=== PATIENT | male | born 1945 | race Caucasian/White ===

== ENCOUNTER 2024-10-10 10:23 | Emergency (ER) | payer MEDICARE, OTHER ==
[~2024-10-10] VITALS: Ht 188 cm; Wt 83.9 kg
[~2024-10-10 10:23] MED LIST: ATOR40TA PO; LOSARTAN POTAS100 M1 PO; METF500 PO; Prozac40 MG PO; TAMS.4ER PO
[2024-10-10 11:36] LABS: Source, Urine Clean Catch
[2024-10-10 11:41] LABS: BASOPHILS ABSOLUTE AUTO 0.09 K/mm3 (0.00-0.23); BASOPHILS PERCENT AUTO 1 % (0-2); EOSINOPHILS ABSOLUTE AUTO 0.19 K/mm3 (0.00-0.68); EOSINOPHILS PERCENT AUTO 3 % (0-6); Hematocrit 47.3 % (37.0-53.0); Hemoglobin 16.2 g/dL (13.5-17.5); IMMATURE GRAN ABSOLUTE AUTO 0.06 K/mm3 (0.00-0.10); IMMATURE GRAN PERCENT AUTO 1 % (0-1); LYMPHOCYTES ABSOLUTE AUTO 1.25 K/mm3 (0.84-5.20); LYMPHOCYTES PERCENT AUTO 20 % (21-46); MONOCYTES ABSOLUTE AUTO 0.68 K/mm3 (0.16-1.47); MONOCYTES PERCENT AUTO 11 % (4-13); Mean Corpuscular HGB 27.1 pg (26.0-34.0); Mean Corpuscular HGB Conc 34.2 g/dL (31.5-36.5); Mean Corpuscular Volume 79 fL (80-100); Mean Platelet Volume 10.6 fL (9.1-12.4); NEUTROPHILS PERCENT AUTO 64 % (41-73); Platelet Count 233 K/mm3 (150-400); RDW Coefficient Variation 13.5 % (11.7-14.2); RDW Standard Deviation 38.6 fL (35.1-46.3); Red Blood Cell Count 5.98 M/mm3 (4.30-5.90); White Blood Cell Count 6.27 K/mm3 (4.00-11.30)
[2024-10-10 12:10] LABS: Albumin, Blood 3.8 g/dL (3.4-5.0); Albumin/Globulin Ratio 1.2 (0.8-1.8); Bilirubin, Total 0.6 mg/dL (0.1-1.0); Bun/Creatinine Ratio 13.6 (12.0-20.0); Calcium, Blood 9.7 mg/dL (8.5-10.1); Creatinine, Blood 0.96 mg/dL (0.60-1.20); Globulin, Blood 3.2 g/dL (2.2-4.0); Potassium, Blood 4.5 mmol/L (3.5-5.5)
[2024-10-10 12:15] LABS: Bilirubin, Urine Neg (Neg); Blood, Urine Neg (Neg); Glucose Qualitative, Urine Neg (Neg); Ketones, Urine Neg (Neg); Leukocyte Esterase, Urine 1+ (Neg); Nitrite, Urine Neg (Neg); Protein, Urine Neg (Neg); Specific Gravity, Urine 1.015 (1.003-1.022); Urobilinogen, Urine NORM (Normal)
[2024-10-10 12:42] LABS: Appearance, Urine Hazy (Clear); Bacteria Few /hpf; Color, Urine Yellow (P-Yellow); Red Blood Cells, Urine 0-2 /hpf (0-2); Squamous Epithelial Cells Few /hpf (Few)
[2024-10-10] MEDS ORDERED: Cephalexin Monohydrate 500 MG Cap PO ONE (13:30)
[2024-10-10] MEDS ORDERED: Acetaminophen 500 MG Tab PO ONE (13:30)
[2024-10-10] MEDS ORDERED: SENNA LAXATIVE8.6 MG PO (13:32)
[2024-10-10] MEDS ORDERED: Golytely Solu4000 ML PO (13:32)
[2024-10-10] MEDS ORDERED: MIRALAX17 GM PO (13:32)
[2024-10-10] MEDS ORDERED: ACET500 PO (13:32)
[2024-10-10] MEDS ORDERED: CEPH500 PO (13:33)
[2024-10-10 13:50] VITALS: BP 154/107
== END 2024-10-10 14:01 | disposition home or self-care (01) ==
LOC: ER 10:23
PROVIDERS: Student in an Organized Health Care Education/Training Program
DX: K59.00 Constipation, unspecified (principal); N39.0 Urinary tract infection, site not specified; K80.20 Calculus of gallbladder without cholecystitis without obstruction; E11.9 Type 2 diabetes mellitus without complications; Z88.8 Allergy status to other drugs, medicaments and biological substances; Z79.899 Other long term (current) drug therapy; Z79.84 Long term (current) use of oral hypoglycemic drugs
CPT/HCPCS: 74177; 80053; 81001; 83690; 85025; 87086; 99284-25; A9270; Q9967

== ENCOUNTER 2024-12-07 14:02 | Emergency (ER) | payer MEDICARE, OTHER ==
[~2024-12-07] VITALS: Ht 203.2 cm; Wt 99.8 kg
[~2024-12-07 14:02] MED LIST changes: +ACET500 PO; +CEPH500 PO; +Golytely Solu4000 ML PO; +MIRALAX17 GM PO; +SENNA LAXATIVE8.6 MG PO
[2024-12-07] MEDS ORDERED: Lactulose 20 GM/30 ML UDC PO ONE ×3 (15:00→17:20)
[2024-12-07 16:24] VITALS: BP 167/87
[2024-12-07] MEDS ORDERED: Magnesium Citrate 300 ML BTL PO ONE (17:20)
[2024-12-07] MEDS ORDERED: Glycerin Adult Supp 1 EA PR ONE (17:20)
== END 2024-12-07 17:46 | disposition home or self-care (01) ==
LOC: ER 14:02
DX: K59.00 Constipation, unspecified (principal); E11.9 Type 2 diabetes mellitus without complications; E78.5 Hyperlipidemia, unspecified; Z88.6 Allergy status to analgesic agent; Z79.84 Long term (current) use of oral hypoglycemic drugs; Z79.899 Other long term (current) drug therapy
CPT/HCPCS: 99283; A9270

== ENCOUNTER 2024-12-09 10:20 | Day surgery (SDC) | payer MEDICARE, OTHER ==
[~2024-12-09] VITALS: Ht 203.2 cm; Wt 107.8 kg
[~2024-12-09 10:20] MED LIST changes: +Balanced Salt Epinephrine Irrigation Solution 500 mL IR SCH; +Diazepam 2 MG Tab PO PRN; +Diazepam 2 MG Tab PO SCH; +Lidocaine HCl/Pf 1% 5 ML VIAL XX SCH; +Midazolam HCl 1MG / ML 2ML Vial ONE; +Moxifloxacin HCL 0.5 MG/0.1 ML 0.4MLSYR RIGHTEYE SCH; +NS 0 ML IV ONE; +Ondansetron 4 MG SoluTab MM PRN; +PHENYLEPHRINE\\TROPICAMIDE\\TETRACAINE OPHTHALMIC DILATING SOLN RIGHTEYE PRN; +Povidone-Iodine 450 DROP/30 ML Solution ONE; +Povidone-Iodine 450 DROP/30 ML Solution RIGHTEYE SCH; +Tetracaine HCl/Pf 0.5% Opth Soln 4 ml ONE
[2024-12-09] MEDS ORDERED: Diazepam 2 MG Tab ONE (10:48)
[2024-12-09 12:02] VITALS: BP 149/98
== END 2024-12-09 12:17 | disposition home or self-care (01) ==
LOC: ORSCSDS 10:20
PROVIDERS: Student in an Organized Health Care Education/Training Program
PROC: 08RJ3JZ Replacement of Right Lens with Synthetic Substitute, Percutaneous Approach (ICD-10-PCS; principal; 2024-12-09 12:00)
DX: E11.36 Type 2 diabetes mellitus with diabetic cataract (principal); H25.813 Combined forms of age-related cataract, bilateral; Z87.891 Personal history of nicotine dependence; F32.A Depression, unspecified; E78.5 Hyperlipidemia, unspecified; I10 Essential (primary) hypertension; Z79.899 Other long term (current) drug therapy
CPT/HCPCS: 82947; A9270; J2250; J7040; V2632

== ENCOUNTER 2024-12-15 06:09 | Day surgery (SDC) | payer MEDICARE, OTHER ==
[~2024-12-15] VITALS: Ht 203.2 cm; Wt 108.6 kg
[~2024-12-15 06:09] MED LIST changes: -Midazolam HCl 1MG / ML 2ML Vial ONE; +Moxifloxacin HCL 0.5 MG/0.1 ML 0.4MLSYR LEFTEYE SCH; -Moxifloxacin HCL 0.5 MG/0.1 ML 0.4MLSYR RIGHTEYE SCH; -NS 0 ML IV ONE; +PHENYLEPHRINE\\TROPICAMIDE\\TETRACAINE OPHTHALMIC DILATING SOLN LEFTEYE PRN; -PHENYLEPHRINE\\TROPICAMIDE\\TETRACAINE OPHTHALMIC DILATING SOLN RIGHTEYE PRN; +Povidone-Iodine 450 DROP/30 ML Solution LEFTEYE SCH; -Povidone-Iodine 450 DROP/30 ML Solution RIGHTEYE SCH; -Tetracaine HCl/Pf 0.5% Opth Soln 4 ml ONE
[2024-12-15] MEDS ORDERED: Tetracaine HCl/Pf 0.5% Opth Soln 4 ml ONE (06:10)
[2024-12-15] MEDS ORDERED: Diazepam 2 MG Tab ONE (06:18)
[2024-12-15] MEDS ORDERED: Diazepam 5 MG Tab ONE (06:19)
[2024-12-15] MEDS ORDERED: Lidocaine HCl/Pf 1% 5 ML VIAL ONE (06:35)
[2024-12-15] MEDS ORDERED: Moxifloxacin HCL 0.5 MG/0.1 ML 0.4MLSYR LEFTEYE ONE (07:38)
[2024-12-15] MEDS ORDERED: Lidocaine HCl/Pf 1% 5 ML VIAL XX ONE (07:38)
[2024-12-15] MEDS ORDERED: Balanced Salt Epinephrine Irrigation Solution 500 mL LEFTEYE ONE (07:38)
[2024-12-15 07:56] VITALS: BP 152/96
--- NOTE | 2024-12-15 08:03 | NUR ---
12/15/24 0803 Eun Rodríguez PT TO RESTROOM, VOIDED X1
== END 2024-12-15 08:18 | disposition home or self-care (01) ==
LOC: ORSCSDS 06:09
PROVIDERS: Student in an Organized Health Care Education/Training Program
PROC: 08RK3JZ Replacement of Left Lens with Synthetic Substitute, Percutaneous Approach (ICD-10-PCS; principal; 2024-12-15 07:30)
DX: E11.36 Type 2 diabetes mellitus with diabetic cataract (principal); H25.812 Combined forms of age-related cataract, left eye; Z96.1 Presence of intraocular lens; I10 Essential (primary) hypertension; F32.A Depression, unspecified; Z87.891 Personal history of nicotine dependence; E78.5 Hyperlipidemia, unspecified; Z79.84 Long term (current) use of oral hypoglycemic drugs; Z79.899 Other long term (current) drug therapy
CPT/HCPCS: 82947; A9270; J2003; V2632

== ENCOUNTER 2025-06-23 20:52 | Emergency (ER) | payer MEDICARE, OTHER ==
[~2025-06-23] VITALS: Ht 203.2 cm; Wt 107.5 kg
[~2025-06-23 20:52] MED LIST changes: -Balanced Salt Epinephrine Irrigation Solution 500 mL IR SCH; -Diazepam 2 MG Tab PO PRN; -Diazepam 2 MG Tab PO SCH; -Lidocaine HCl/Pf 1% 5 ML VIAL XX SCH; -Moxifloxacin HCL 0.5 MG/0.1 ML 0.4MLSYR LEFTEYE SCH; -Ondansetron 4 MG SoluTab MM PRN; -PHENYLEPHRINE\\TROPICAMIDE\\TETRACAINE OPHTHALMIC DILATING SOLN LEFTEYE PRN; -Povidone-Iodine 450 DROP/30 ML Solution LEFTEYE SCH; -Povidone-Iodine 450 DROP/30 ML Solution ONE
[2025-06-23] MEDS ORDERED: Propofol 10mg/ml 20 ml Vial (Procedural) IV SCH (21:15)
[2025-06-23] MEDS ORDERED: NS 1,000 ML IV ONE (21:51)
[2025-06-23] MEDS ORDERED: NS 1,000 ML IV SCH (22:25)
[2025-06-24 00:53] VITALS: BP 129/74
== END 2025-06-24 00:55 | disposition home or self-care (01) ==
LOC: ER 20:52
DX: T84.021A Dislocation of internal left hip prosthesis, initial encounter (principal); E11.9 Type 2 diabetes mellitus without complications; E78.5 Hyperlipidemia, unspecified; X50.0XXA Overexertion from strenuous movement or load, initial encounter; Z88.8 Allergy status to other drugs, medicaments and biological substances; Z79.899 Other long term (current) drug therapy; Z79.84 Long term (current) use of oral hypoglycemic drugs
CPT/HCPCS: 27265; 72170; 73501; 99152; 99284-25; J2704; J7030